=== PATIENT | female | born 1980 | race Caucasian/White ===

== ENCOUNTER 2023-07-15 09:54 | Emergency (ER) | payer OTHER ==
[~2023-07-15] VITALS: Ht 154.9 cm; Wt 90.7 kg
[2023-07-15 10:05] VITALS: BP_SYST 152; PULSE 105; RESP 18; TEMP 97.5; O2SAT 100
[2023-07-15 11:06] VITALS: BP_SYST 148; PULSE 99; RESP 18; TEMP 97.6; O2SAT 98
== END 2023-07-15 10:54 | disposition left against medical advice (07) ==
LOC: SED 09:54
DX: S20.219A Contusion of unspecified front wall of thorax, initial encounter (principal); V49.40XA Driver injured in collision with unspecified motor vehicles in traffic accident, initial encounter; Y93.89 Activity, other specified; Y92.89 Other specified places as the place of occurrence of the external cause; Y99.8 Other external cause status
CPT/HCPCS: 99283